=== PATIENT | male | born 1980 | race Caucasian/White ===

== ENCOUNTER 2018-12-12 12:01 | Emergency (ER) | payer OTHER ==
[2018-12-12] MEDS ORDERED: MORPHINE SULFATE 10 MG/ML INJ IV ONE (12:18)
[2018-12-12] MEDS ORDERED: KETOROLAC TROMETHAMINE INJ/PF 30 MG/1 ML SDV IV ONE ×2 (12:18→18:16)
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
[2018-12-12] MEDS ORDERED: ONDANSETRON HCL INJ/PF 4 MG/2 ML SDV ONE (12:26)
[2018-12-12] MEDS ORDERED: ONDANSETRON HCL INJ/PF 4 MG/2 ML SDV IV ONE (12:26)
[2018-12-12] MEDS ORDERED: NORMAL SALINE 1000 ML 1,000 ML IV ONE ×2 (12:31→12:42)
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
[2018-12-12] MEDS ORDERED: DIPH/PERTUSS(ACELL)/TETANUS VAC/PF 0.5 ML SYR (>=10YO) IM ONE (12:40)
[2018-12-12] MEDS: MORPHINE SULFATE 10 MG/ML INJ IV PRN ×2 (14:28→18:35)
[2018-12-12] MEDS ORDERED: PANTOPRAZOLE SODIUM 40 MG VIAL IV ONE (15:18)
[2018-12-12 19:06] VITALS: BP 128/83
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
== END 2018-12-12 21:20 | disposition short-term general hospital (02) ==
LOC: ER 12:01
DX: T23.001A Burn of unspecified degree of right hand, unspecified site, initial encounter (principal); T20.00XA Burn of unspecified degree of head, face, and neck, unspecified site, initial encounter; X08.8XXA Exposure to other specified smoke, fire and flames, initial encounter; F17.200 Nicotine dependence, unspecified, uncomplicated
CPT/HCPCS: 96376; 99291; 99292; 96361; 90471; 96374; 96375; 90715; J1885; J2270; S0164; J2405; J7030